=== PATIENT | male | born 1995 | race American Indian/Alaskan Native ===

== ENCOUNTER 2017-08-26 16:58 | Emergency (ER) | payer SELFPAY ==
[2017-08-26 19:48] VITALS: BP 114/57
--- NOTE | 2017-08-27 01:32 | Emergency Department Report ---
<AMANDA VARGAS - Last Filed: 08/27/17 01:20> ED Upper Extremity Inj HPI - General Chief Complaint: Shoulder Injury Stated Complaint: RIGHT SHOULDER PAIN Time Seen by Provider: 08/27/17 01:20 Source: patient Mode of arrival: Ambulatory Limitations: No Limitations - History of Present Illness Initial Comments: 22-year-old male comes in complaining of right shoulder pain after lifting something heavy at home. Patient states he has a history of dislocation but did did not dislocate his shoulder today. Patient reports that his pain has improved since sitting here. Patient did not take any pain medication prior to arrival. Patient has no past medical history currently takes no medications on a daily basis and has no known drug allergies. MD Complaint: Injury to:: right -: This afternoon Other Extremity Injury: Shoulder: Right Other Injuries: none Handedness: right Place: home Severity scale (0 -10): 0 Context: other (lifting something heavy) Associated Symptoms: denies other symptoms Treatments Prior to Arrival: other (none) - Related Data Previous Rx's Medication Instructions Recorded Last Taken Type Ibuprofen [Motrin 600 MG tab] 600 mg PO Q8H PRN #30 tablet 08/27/17 Unknown Rx Allergies Allergy/AdvReac Type Severity Reaction Status Date / Time No Known Allergies Allergy Unverified 08/26/17 17:12 ED Review of Systems ROS: Stated complaint: RIGHT SHOULDER PAIN Other details as noted in HPI Comment: All other systems reviewed and negative Musculoskeletal: arthralgia (right shoulder) ED Past Medical Hx - Past Medical History Previous Medical History?: No - Surgical History Past Surgical History?: No - Social History Smoking Status: Never Smoker Substance Use Type: None - Medications Home Medications: Home Medications Medication Instructions Recorded Confirmed Last Taken Type Ibuprofen [Motrin 600 MG tab] 600 mg PO Q8H PRN #30 tablet 08/27/17 Unknown Rx ED Physical Exam - General Limitations: No Limitations General appearance: alert, in no apparent distress - Head Head exam: Present: atraumatic, normocephalic - ENT ENT exam: Present: mucous membranes moist - Neck Neck exam: Present: normal inspection - Respiratory Respiratory exam: Present: normal lung sounds bilaterally. Absent: respiratory distress - Cardiovascular Cardiovascular Exam: Present: regular rate, normal rhythm. Absent: systolic murmur, diastolic murmur, rubs, gallop - Expanded Upper Extremity Exam Right Shoulder Exam: Present: full ROM. Absent: tenderness, swelling, abrasion, deformity, crepidus, dislocation Upper Arm exam: Present: normal inspection, full ROM. Absent: tenderness, swelling, deformity, crepidus Elbow exam: Present: normal inspection, full ROM. Absent: tenderness, swelling , dislocation, erythema Forearm Wrist exam: Present: normal inspection, full ROM. Absent: tenderness, swelling, deformity Hand Wrist exam: Present: normal inspection, full ROM. Absent: tenderness, swelling Vascular: Present: normal capillary refill. Absent: vascular compromise - Neurological Exam Neurological exam: Present: alert, oriented X3 - Psychiatric Psychiatric exam: Present: normal affect, normal mood - Skin Skin exam: Present: warm, dry, intact, normal color. Absent: rash ED Course Vital Signs 08/26/17 08/26/17 17:12 19:47 Temperature 99.1 F Pulse Rate 74 144 H Respiratory 18 20 Rate Blood Pressure 125/69 114/57 O2 Sat by Pulse 99 99 Oximetry ED Medical Decision Making - Medical Decision Making Patient has been seen by this provider fast track. Examination of shoulder patient has full range of motion no swelling no crepitus no abnormalities appreciated. Patient reports that his pain is improved since waiting here to be seen. Discussed with patient that this happens again he can try some ibuprofen for pain. If that doesn't improve it but he feels like it's been dislocated please return back to the emergency room for evaluation. Critical care attestation.: If time is entered above; I have spent that time in minutes in the direct care of this critically ill patient, excluding procedure time. ED Disposition Disposition: - TO HOME OR SELFCARE Is pt being admited?: No Does the pt Need Aspirin: No Condition: Stable Instructions: Shoulder Sprain (ED) Additional Instructions: Please take pain medication as prescribed. If symptoms persist or gets worse please follow up with her primary care provider. Prescriptions: Ibuprofen [Motrin 600 MG tab] 600 mg PO Q8H PRN #30 tablet PRN Reason: Pain Referrals: PRIMARY CARE, [Primary Care Provider] - 3-5 Days [facility] [Provider Group] - 3-5 Days Forms: Work/School Release Form(ED) <ABEL RODRIGUEZ - Last Filed: 08/27/17 06:19> ED Medical Decision Making - Medical Decision Making Holger ex assistant/program director in fast track reports that last heart rate was an error and will be corrected by Kumar. Midlevel reports patient was not tachycardic and stable at the time of discharge.
== END 2017-08-27 01:38 | disposition home or self-care (01) ==
LOC: ED 16:58
DX: M25.511 Pain in right shoulder (principal)
CPT/HCPCS: 99282

== ENCOUNTER 2018-04-28 03:43 | Emergency (ER) | payer SELFPAY ==
[2018-04-28] MEDS ORDERED: MORPHINE IV ONE (05:17)
[2018-04-28] MEDS ORDERED: NACL 0.9% 1000 ML 1,000 ML IV ONE (05:17)
--- NOTE | 2018-04-28 05:32 | XRay Report ---
FINAL REPORT EXAM: XR SHOULDER 2+V LT HISTORY: left shoulder dislocation COMPARISONS: None. FINDINGS: Four views left shoulder The humeral head projects posterior to the glenoid on scapular Y-view, and there is no rotation and d ecreased humeral head and glenoid overlap/articulation demonstrated on AP views. A reverse Hill-Sachs lesion is suggested. No displaced glenoid fracture identified. Acromioclavicular and coracoclavicula r intervals are within normal limits. Incomplete evaluation of the adjacent left lung is unremarkable . IMPRESSION: Posterior glenohumeral dislocation.
[2018-04-28] MEDS ORDERED: DIPRIVAN 10 MG/ML IV ONE (06:24)
[2018-04-28] MEDS ORDERED: SUBLIMAZE IV ONE (06:25)
[2018-04-28] MEDS ORDERED: SUBLIMAZE IV PRN (06:27)
[2018-04-28] MEDS ORDERED: DIPRIVAN 10 MG/ML IV PRN (06:29)
[2018-04-28] MEDS ORDERED: NARCAN 0.4 MG/1 ML IV ONE (06:30)
[2018-04-28] MEDS ORDERED: SUBLIMAZE ONE (06:31)
--- NOTE | 2018-04-28 06:40 | Emergency Department Report ---
ED General Adult HPI - General Chief complaint: Shoulder Injury Stated complaint: DISLOCATED LEFT SHOULDER Time Seen by Provider: 04/28/18 04:24 Source: EMS Mode of arrival: Stretcher Limitations: Physical Limitation - History of Present Illness Initial comments: Physical 23-year-old man with a history of previous shoulder dislocation. He does not have a history of seizure nor an apparent seizure last night. He states that he moved his shoulder too forcefully and this is what caused it to pop out had 2 AM. He has never sought orthopedic consultation for repair. He denies any other injury. He states he has not eaten for approximately 12 hours. His pain is reasonably under control involving his left shoulder now. Does not report any other painful area nor any focal weakness or numbness. -: Sudden Location: left Radiation: non-radiation Severity scale (0 -10): 9 Consistency: intermittent Improves with: none Worsens with: movement Associated Symptoms: denies other symptoms - Related Data Previous Rx's Medication Instructions Recorded Last Taken Type Ibuprofen [Motrin 600 MG tab] 600 mg PO Q8H PRN #30 tablet 08/27/17 Unknown Rx Allergies Allergy/AdvReac Type Severity Reaction Status Date / Time No Known Allergies Allergy Verified 04/28/18 06:39 ED Review of Systems ROS: Stated complaint: DISLOCATED LEFT SHOULDER Other details as noted in HPI Constitutional: denies: chills, fever Eyes: denies: eye pain, eye discharge, vision change ENT: denies: ear pain, throat pain Respiratory: denies: cough, shortness of breath, wheezing Cardiovascular: denies: chest pain, palpitations Endocrine: no symptoms reported Gastrointestinal: denies: abdominal pain, nausea, diarrhea Genitourinary: denies: urgency, dysuria Musculoskeletal: as per HPI. denies: back pain, joint swelling, arthralgia Skin: denies: rash, lesions Neurological: denies: headache, weakness, paresthesias Psychiatric: denies: anxiety, depression Hematological/Lymphatic: denies: easy bleeding, easy bruising ED Past Medical Hx - Past Medical History Previous Medical History?: No - Surgical History Past Surgical History?: No - Social History Smoking Status: Never Smoker Substance Use Type: None - Medications Home Medications: Home Medications Medication Instructions Recorded Confirmed Last Taken Type Ibuprofen [Motrin 600 MG tab] 600 mg PO Q8H PRN #30 tablet 06/20/18 Unknown Rx ED Physical Exam - General Limitations: Physical Limitation General appearance: alert, in no apparent distress - Head Head exam: Present: atraumatic, normocephalic - Eye Eye exam: Present: normal appearance - ENT ENT exam: Present: mucous membranes moist - Neck Neck exam: Present: normal inspection - Respiratory Respiratory exam: Present: normal lung sounds bilaterally. Absent: respiratory distress - Cardiovascular Cardiovascular Exam: Present: regular rate, normal rhythm. Absent: systolic murmur, diastolic murmur, rubs, gallop - GI/Abdominal GI/Abdominal exam: Present: soft, normal bowel sounds. Absent: distended, tenderness, guarding, rebound - Rectal Rectal exam: Present: deferred - Extremities Exam Extremities exam: Present: normal capillary refill, other (glenoid appears to be empty. Limited range of motion. Painful left shoulder.) - Back Exam Back exam: Present: normal inspection - Neurological Exam Neurological exam: Present: alert, oriented X3, CN II-XII intact. Absent: motor sensory deficit - Psychiatric Psychiatric exam: Present: normal affect, normal mood - Skin Skin exam: Present: warm, dry, intact, normal color. Absent: rash ED Course Vital Signs 04/28/18 04/28/18 04/28/18 04:23 04:27 06:55 Temperature 98.8 F Temperature [ Intra-Procedure ] Temperature [ Post-Procedure] Temperature [ Pre-Procedure] Pulse Rate 89 71 Pulse Rate [ Intra-Procedure ] Pulse Rate [ Post-Procedure] Pulse Rate [Pre -Procedure] Respiratory 18 20 18 Rate Respiratory Rate [Intra- Procedure] Respiratory Rate [Post- Procedure] Respiratory Rate [Pre- Procedure] Blood Pressure 133/74 Blood Pressure [Intra- Procedure] Blood Pressure [Post-Procedure ] Blood Pressure [Pre-Procedure] O2 Sat by Pulse 100 98 Oximetry O2 Sat by Pulse Oximetry [ Intra-Procedure ] O2 Sat by Pulse Oximetry [Post -Procedure] O2 Sat by Pulse Oximetry [Pre- Procedure] 04/28/18 06:56 Temperature Temperature [ 98.2 F Intra-Procedure ] Temperature [ 98.2 F Post-Procedure] Temperature [ 98.2 F Pre-Procedure] Pulse Rate Pulse Rate [ 70 Intra-Procedure ] Pulse Rate [ 90 Post-Procedure] Pulse Rate [Pre 82 -Procedure] Respiratory Rate Respiratory 20 Rate [Intra- Procedure] Respiratory 16 Rate [Post- Procedure] Respiratory 16 Rate [Pre- Procedure] Blood Pressure Blood Pressure 127/67 [Intra- Procedure] Blood Pressure 124/80 [Post-Procedure ] Blood Pressure 137/77 [Pre-Procedure] O2 Sat by Pulse Oximetry O2 Sat by Pulse 100 Oximetry [ Intra-Procedure ] O2 Sat by Pulse 100 Oximetry [Post -Procedure] O2 Sat by Pulse 100 Oximetry [Pre- Procedure] - Reevaluation(s) Reevaluation #1: Patient is fully recovered and appropriate for discharge. He will be referred to orthopedics. 04/28/18 08:16 - Moderate Sedation Indications: fracture/dislocation redu ASA Class: I Mallampati Airway Score: 1 Preparation: manager cardiac applied, pulse oximeter, capnometry used, supplemental O2 applied, reversal agents at bedside, suction/airway equipment at bedside, IV secured Fentanyl: IV IV Propofol Dose (mgs): 50 Complications: none Interventions: oxygen applied Patient Tolerated Procedure: well - Orthopedic Joint Reduction Joint #1 Consent Obtained: verbal consent Time Out Performed: Yes Side: left Joint Reduction Location: shoulder Analgesia: moderate sedation Shoulder Technique Used (if applicable): traction/counter-traction Technique Used: traction/counter-traction Post-Reduction Neuro Exam: intact Post-Reduction Vascular Exam: intact Post Reduction X-Ray Obtained: Yes Post Reduction X-Ray Results: reduced Splint Applied: Yes Patient Tolerated Procedure: well (soft sling), no complications Critical care attestation.: If time is entered above; I have spent that time in minutes in the direct care of this critically ill patient, excluding procedure time. ED Disposition Clinical Impression: Hill Sachs deformity, left Posterior dislocation of left shoulder joint Qualifiers: Encounter type: initial encounter Qualified Code(s): S43.022A - Posterior subluxation of left humerus, initial encounter Disposition: TO HOME OR SELFCARE Is pt being admited?: No Does the pt Need Aspirin: No Condition: Stable Instructions: Shoulder Dislocation (ED) Additional Instructions: Follow-up with orthopedic physician. Do not stress shoulder. Ibuprofen for pain. Referrals: KEVIN RENE MD [Primary Care Provider] - 3-5 Days LIA LESLIE MD [Staff Physician] - 3-5 Days Time of Disposition: 08:17
--- NOTE | 2018-04-28 07:39 | XRay Report ---
FINAL REPORT EXAM: XR SHOULDER 2+V LT HISTORY: post reduction TECHNIQUE: Postreduction AP and lateral views of the left shoulder were obtained and correlated with the earlier study. FINDINGS: The humeral head is now in proper orientation relative to the glenoid. There is no evidence of fractu re. The AC joint appears normal. The surrounding soft tissues are well maintained. IMPRESSION: Satisfactory reduction. No evidence of fracture
[2018-04-28 08:46] VITALS: BP 135/78
== END 2018-04-28 08:44 | disposition home or self-care (01) ==
LOC: ED 03:43
DX: S43.022A Posterior subluxation of left humerus, initial encounter (principal); X58.XXXA Exposure to other specified factors, initial encounter; Y93.89 Activity, other specified; Y92.89 Other specified places as the place of occurrence of the external cause; Y99.8 Other external cause status
CPT/HCPCS: 23650; 73030; 96374; 96375; 99285; J2270; J2704; J3010; J7030

== ENCOUNTER 2020-02-29 21:48 | Emergency (ER) | payer SELFPAY ==
[2020-02-29 23:06] VITALS: BP 134/82
== END 2020-03-01 00:01 | disposition left against medical advice (07) ==
LOC: ED 21:48
DX: R51.9 Headache, unspecified (principal); Z53.21 Procedure and treatment not carried out due to patient leaving prior to being seen by health care provider

== ENCOUNTER 2020-11-24 22:56 | Emergency (ER) | payer SELFPAY ==
[2020-11-24 23:29] VITALS: BP 134/83
--- NOTE | 2020-11-25 00:46 | Emergency Department Report ---
ED General Adult HPI - General Chief complaint: Urogenital-Male Stated complaint: ANAL IRRITATION Time Seen by Provider: 11/25/20 00:23 Source: patient Mode of arrival: Ambulatory Limitations: No Limitations - History of Present Illness Initial comments: 35-year-old F Lebanese male with asthma department complaining of a few day history of constipation is now resulting in having some painless blood to his rectal region that occurs whenever he wipes. No fever, chills, sweats. No chest pain palpitation no nausea vomiting. -: Gradual Radiation: non-radiation Improves with: none Worsens with: none - Related Data Previous Rx's Medication Instructions Recorded Last Taken Type Ibuprofen [Motrin 600 MG tab] 600 mg PO Q8H PRN #30 tablet 08/27/17 Unknown Rx Hydrocortisone [Anucort-HC SUPPOS] 25 mg RC BID #20 supp.rect 11/25/20 Unknown Rx Allergies Allergy/AdvReac Type Severity Reaction Status Date / Time No Known Allergies Allergy Verified 04/28/18 06:39 ED Review of Systems ROS: Stated complaint: ANAL IRRITATION Other details as noted in HPI Comment: All other systems reviewed and negative ED Past Medical Hx - Past Medical History Previous Medical History?: Yes Hx Headaches / Migraines: Yes - Surgical History Past Surgical History?: No - Social History Smoking Status: Never Smoker Substance Use Type: None - Medications Home Medications: Home Medications Medication Instructions Recorded Confirmed Last Taken Type Ibuprofen [Motrin 600 MG tab] 600 mg PO Q8H PRN #30 tablet 08/27/17 Unknown Rx Hydrocortisone [Anucort-HC SUPPOS] 25 mg RC BID #20 supp.rect 11/25/20 Unknown Rx ED Physical Exam - General Limitations: No Limitations General appearance: alert, in no apparent distress - Head Head exam: Present: atraumatic, normocephalic - Eye Eye exam: Present: normal appearance, PERRL Pupils: Present: normal accommodation - ENT ENT exam: Present: normal exam, normal orophraynx, mucous membranes moist, TM's normal bilaterally - Neck Neck exam: Present: normal inspection, full ROM - Respiratory Respiratory exam: Present: normal lung sounds bilaterally. Absent: respiratory distress, wheezes, rales, chest wall tenderness, accessory muscle use - Cardiovascular Cardiovascular Exam: Present: regular rate, normal rhythm. Absent: systolic murmur, diastolic murmur, rubs, gallop - GI/Abdominal GI/Abdominal exam: Present: soft, normal bowel sounds - Rectal Rectal exam: Present: deferred - Extremities Exam Extremities exam: Present: normal inspection, normal capillary refill - Back Exam Back exam: Present: normal inspection. Absent: CVA tenderness (R), CVA tenderness (L) - Neurological Exam Neurological exam: Present: alert, oriented X3, CN II-XII intact, normal gait - Psychiatric Psychiatric exam: Present: normal affect, normal mood - Skin Skin exam: Present: warm, dry, intact, normal color. Absent: rash ED Course Vital Signs 11/24/20 23:28 Temperature 98.2 F Pulse Rate 79 Respiratory 16 Rate Blood Pressure 134/83 O2 Sat by Pulse 99 Oximetry Critical care attestation.: If time is entered above; I have spent that time in minutes in the direct care of this critically ill patient, excluding procedure time. ED Disposition Clinical Impression: Acute hemorrhoid Disposition: HOME / SELF CARE / HOMELESS Is pt being admited?: No Does the pt Need Aspirin: No Condition: Stable Instructions: Nonsurgical Procedures for Hemorrhoids, Surgical Procedures for Hemorrhoids, Care After, Hemorrhoids, [id number] Prescriptions: Hydrocortisone [Anucort-HC SUPPOS] 25 mg RC BID #20 supp.rect Referrals: [facility] [Provider Group] - 3-5 Days
== END 2020-11-25 01:14 | disposition home or self-care (01) ==
LOC: ED 22:56
DX: K64.9 Unspecified hemorrhoids (principal); G43.909 Migraine, unspecified, not intractable, without status migrainosus
CPT/HCPCS: 99281